=== PATIENT | female | born 1935 | race Caucasian/White ===

== ENCOUNTER → 2018-06-14 12:25 | Outpatient (CLI) | payer MEDICARE, SELFPAY ==
--- NOTE | 2018-06-14 | DI.US.S_ITS ---
PROCEDURE: US CAROTID DOPPLER BI INDICATIONS: UNSPECIFIED VISUAL DEFECTS TECHNIQUE: Color and pulse Doppler interrogation was performed of both carotid systems, with image documentation and velocity measurements. COMPARISON: None. FINDINGS: Stenosis calculations are based on SRU (Society of Radiologists in Ultrasound) criteria. Right side: Brachial blood pressure: 99/54 mm Hg. Common carotid artery peak systolic velocity: 101 cm/sec. Internal carotid artery peak systolic velocity: 87 cm/sec. Internal carotid artery end diastolic velocity: 19 cm/sec. External carotid artery peak systolic velocity: 81 cm/sec. ICA/CCA peak systolic ratio: 0.9. Li scale imaging description: Minimal plaque. Percent internal carotid artery stenosis: Less than 50%. Vertebral artery: Flow direction is antegrade. Left side: Brachial blood pressure: 98/55 mm Hg. Common carotid artery peak systolic velocity: 113 cm/sec. Internal carotid artery peak systolic velocity: 93 cm/sec. Internal carotid artery end diastolic velocity: 25 cm/sec. External carotid artery peak systolic velocity: 72 cm/sec. ICA/CCA peak systolic ratio: 0.8 Li scale imaging description: Normal appearance. Percent internal carotid artery stenosis: No carotid stenosis.. Vertebral artery: Flow direction is antegrade. IMPRESSION: Less than 50% right internal carotid artery stenosis and normal left carotid artery. Dictated by: Leland Loera RRA Interpreted: Argelia Wing MD on 06/14/2018 at 13:52 Approved by: Argelia Wing MD, PhD on 06/14/2018 at 15:09
--- NOTE | 2018-06-16 08:24 | PM.PFT.1 ---
Pulmonary Function Test Referral & Results Date Patient Seen: 06/14/18 Requesting provider: Mike Rose Results: The spirometry demonstrates an FVC of 2.3 L which is 95% of predicted. The FEV1 was measured at 1.54 L which is 83% of predicted. The FEV1/FVC ratio was 65 which is 88% of predicted. Following the administration of bronchodilator there was a 12% improvement in FEV1 and a 32% improvement in FEF 25-75%. Lung volumes show an SVC of 2.65 L which is 101% of predicted. The diffusing capacity was measured at 18.82 which is 77% of predicted. No hemoglobin value was provided, so no correction for potential anemia could be made, if appropriate. The maximum voluntary ventilation was reduced Interpretation: This study demonstrates mild obstructive lung disease with some limited evidence of benefit following bronchodilator particularly small airway flows based on improvement in FEF 25-75%. There is also slight reduction in diffusing capacity Compared to PFTs performed in November 2017, current study shows a bit more obstructive lung disease end diffusing capacity is reduced. Previously diffusing capacity was 87% predicted currently 77% of predicted (assuming patient is not anemic for either test)
== END ==
PROVIDERS: Family Provider Ophthalmology; PCP Family Medicine; Visit Provider Internal Medicine Cardiovascular Disease
DX: I51.9 Heart disease, unspecified (principal); R05 Cough; Z79.899 Other long term (current) drug therapy; H53.40 Unspecified visual field defects; E03.9 Hypothyroidism, unspecified; R53.83 Other fatigue; Z79.01 Long term (current) use of anticoagulants
CPT/HCPCS: 93880; 94010; 94060; 94726; 94729

== ENCOUNTER 2019-03-21 14:19 | Emergency (ER) | payer MEDICARE, OTHER, SELFPAY ==
[2019-03-21 14:22] VITALS: BP 149/78; PULSE 68; RESP 20; O2SAT 95; BMI 25.7
--- NOTE | 2019-03-21 14:25 | DI.RAD.S_ITS ---
PROCEDURE: XR FINGER LT MIN 2V INDICATIONS: injury, pain TECHNIQUE: AP hand, 2 views of the left second digit/finger(s) acquired. COMPARISON: None. FINDINGS: Bones: Bones are diffusely demineralized. No acute fracture or dislocation is identified. There are mild to moderate degenerative changes of the first through fifth interphalangeal joints, the first metacarpophalangeal joint, and the first carpometacarpal joint. Soft tissues: No radiopaque foreign bodies are identified. There is subtle soft tissue irregularity overlying the dorsal aspect of the mid-diaphysis of the left second distal phalanx. IMPRESSION: 1. No acute fracture or dislocation of the left second digit. Subtle soft tissue irregularity overlying the dorsal aspect of the left second distal phalanx may represent the sequela of soft tissue injury. Consider followup radiographs in 7-10 days if there is continued clinical concern. 2. Mild to moderate degenerative changes of the left hand as described above. Dictated by: Lamine Nevarez M.D. on 03/21/2019 at 14:39 Approved by: Lamine Nevarez M.D. on 03/21/2019 at 14:54
--- NOTE | 2019-03-21 14:41 | PC.NURSE ---
Dressing with 4x4s and coban to L index finger as continues to bleed. Pt is on Eliquis. Ice pack to finger.
[2019-03-21 16:35] VITALS: BP 170/84; PULSE 70; RESP 18; TEMP 36.9; O2SAT 99
--- NOTE | 2019-03-21 20:57 | ED.UPPEXIN ---
HPI - Extremity Injury (Upper) <Gabriela Prince, NUCLEAR EQUIPMENT DESIGN ENGINEER-BC - Last Filed: 03/21/19 21:01> General Chief Complaint: Extremity Injury, Upper Stated Complaint: smashed index finger in door Time Seen by Provider: 03/21/19 15:18 Source: patient and family Mode of arrival: ambulatory Limitations: no limitations History of Present Illness HPI narrative: The patient is an 83-year-old female former smoker who presents with a chief complaint of left index finger injury. She has a history of atrial fibrillation. She states she is not sure when her last tetanus was. She states she does have decreased range of motion due to pain, but she does not think it is broken. She denies any other injury she has not washed out. Related Data Home Medications Medication Instructions Recorded Confirmed diltiazem HCl 60 mg PO Q12H #0 01/14/17 03/21/19 amiodarone 50 mg PO DAILY #0 03/21/17 03/21/19 acyclovir 400 mg PO TID PRN 03/21/19 03/21/19 albuterol sulfate [ProAir HFA] 2 puff INHALATION QID PRN 03/21/19 03/21/19 apixaban 2.5 mg PO BID 03/21/19 03/21/19 buspirone 1 dose PO DIRECTED 03/21/19 03/21/19 calcium carbonate [Calcium 500] 500 mg PO DAILY 03/21/19 03/21/19 cholecalciferol (vitamin D3) 2,000 unit PO DAILY 03/21/19 03/21/19 [Vitamin D3] diclofenac sodium 1 applic TOPICAL QID PRN 03/21/19 03/21/19 gabapentin 100 mg PO DAILY 03/21/19 03/21/19 liothyronine [Cytomel] 5 mcg PO DAILY 03/21/19 03/21/19 loratadine 10 mg PO DAILY 03/21/19 03/21/19 mirtazapine 15 mg PO DAILY 03/21/19 03/21/19 multivitamin 1 tab PO DAILY 03/21/19 03/21/19 Previous Rx's Medication Instructions Recorded levothyroxine 0.088 mg PO QAM #90 tab 02/10/17 Allergies Allergy/AdvReac Type Severity Reaction Status Date / Time clotrimazole [CLOTRIMAZOLE] Allergy Severe EXTREME Unverified 12/21/17 11:52 BURNING,SWELLING,REDNESS oxycodone [OXYCODONE] Allergy Severe VOMITING Unverified 12/21/17 11:52 azithromycin [AZITHROMYCIN] Allergy Intermediate NAUSEA Unverified 12/21/17 11:52 VOMITING,DIARRHEA dextromethorphan Allergy Intermediate DIARRHEA Unverified 12/21/17 11:52 [DEXTROMETHORPHAN] Sulfa (Sulfonamide Allergy Mild UNKNOWN Unverified 12/21/17 11:52 Antibiotics) [SULFA (SULFONAMIDE ANTIBIOTICS)] escitalopram [From LEXAPRO] AdvReac Intermediate felt Unverified 12/21/17 11:52 terrible ENVIRONMENTAL Allergy Intermediate WHEEZING, Uncoded 12/21/17 11:52 SNEEZING, ITCHY EYES TAPE Allergy Mild SENSITIVE Uncoded 12/21/17 11:52 PAPER OK Review of Systems <DAYNA Schwab - Last Filed: 03/21/19 21:01> Review of Systems GENERAL: Denies chills, fatigue, malaise, fever, sweats. HEENT: Denies sinus pain, ear pain, sore throat, difficulty swallowing, dizziness. RESPIRATORY: Denies dyspnea, cough, wheezing, hemoptysis, sputum. CARDIOVASCULAR: Denies chest pain, palpitations, orthopnea, edema, GASTROINTESTINAL: Denies nausea, vomiting, abdominal pain, diarrhea, constipation, melena. : Denies dysuria, frequency, incontinence, hematuria, urinary retention. MUSCULOSKELETAL: d see HPI SKIN: See HPI NEUROLOGIC: Denies weakness, headache, numbness, change in speech, confusion, seizures, incoordination. PSYCHIATRIC: No concerning psychosocial issues. 12 point review of systems is negative except for those stated above PFSH <DAYNA Schwab - Last Filed: 03/21/19 21:01> Medical History Atrial fibrillation (Acute) Surgical History History of cataract removal with insertion of prosthetic lens History of knee replacement Status post appendectomy Status post colonoscopy Status post tonsillectomy and adenoidectomy Family History Father Heart disease Grandmother Heart disease Grandfather Heart disease Sister Age: 80 Obese Breast cancer Sister Age: 73 Obese Social History Smoking Status: Former smoker Family History Father Heart disease Grandmother Heart disease Grandfather Heart disease Sister Age: 80 Obese Breast cancer Sister Age: 73 Obese Social History Smoking Status: Former smoker Exam <DAYNA Schwab - Last Filed: 03/21/19 21:01> Narrative Exam Narrative: GENERAL: This is a well-nourished, well-developed patient, appears anxious HEAD: Atraumatic. Normocephalic. No temporal or scalp tenderness. EYES: Pupils equal round and reactive. Extraocular motions intact. No scleral icterus. No injection or drainage. ENT: Nose without bleeding, purulent drainage or septal hematoma. Throat without erythema, tonsillar hypertrophy or exudate. Uvula midline. Airway patent. NECK: Trachea midline. No JVD or lymphadenopathy. Supple, nontender, no meningeal signs. CARDIOVASCULAR: Regular rate and rhythm RESPIRATORY: No cough. No increased respiratory effort. No accessory muscle use. EXTREMITIES: Full range of motion noted left index finger. Able to flex and extend against resistance.. BACK: Nontender without deformity or crepitance. No flank tenderness. NEURO: AOx3. SKIN: Laceration noted above the base of the nail of the left index finger blood using around nail. Initial Vital Signs Initial Vital Signs: Vital Signs Pulse Rate 68 03/21/19 14:22 Respiratory Rate 20 03/21/19 14:22 Blood Pressure 149/78 H 03/21/19 14:22 Pulse Oximetry 95 03/21/19 14:22 <Gabriela Grove DO - Last Filed: 03/23/19 07:52> Initial Vital Signs Initial Vital Signs: Vital Signs Pulse Rate 68 03/21/19 14:22 Respiratory Rate 20 03/21/19 14:22 Blood Pressure 149/78 H 03/21/19 14:22 Pulse Oximetry 95 03/21/19 14:22 Course <DAYNA Schwab - Last Filed: 03/21/19 21:01> Orders Ordered: ED Orders 03/21/19 14:25 XR finger LT min 2V Stat Vital Signs - 8 hr 03/21/19 14:22 03/21/19 16:35 Temperature 98.4 F Pulse Rate 68 70 Respiratory Rate 20 18 Blood Pressure 149/78 H Blood Pressure [Left Arm] 170/84 H Pulse Oximetry 95 99 <Gabriela Grove DO - Last Filed: 03/23/19 07:52> Orders Ordered: ED Orders 03/21/19 14:25 XR finger LT min 2V Stat Vital Signs - 8 hr 03/21/19 14:22 03/21/19 16:35 Temperature 98.4 F Pulse Rate 68 70 Respiratory Rate 20 18 Blood Pressure 149/78 H Blood Pressure [Left Arm] 170/84 H Pulse Oximetry 95 99 MDM - Extremity Injury (Upper) <DAYNA Schwab - Last Filed: 03/21/19 21:01> Imaging Data Finger x-ray: Radiologist's impression: [address] [address] XRay Report Signed Patient: Velma Qureshi CMR#: [id number] : [id number]:[id number] Age/Sex: 83 / FDate of Service: 03/21/19 Loc: ED Accession Number: [id number] Procedure: XR finger LT min 2V Ordering Provider: Gabriela Grove D.O. PROCEDURE: XR FINGER LT MIN 2V INDICATIONS: injury, pain TECHNIQUE: AP hand, 2 views of the left second digit/finger(s) acquired. COMPARISON: None. FINDINGS: Bones: Bones are diffusely demineralized. No acute fracture or dislocation is identified. There are mild to moderate degenerative changes of the first through fifth interphalangeal joints, the first metacarpophalangeal joint, and the first carpometacarpal joint. Soft tissues: No radiopaque foreign bodies are identified. There is subtle soft tissue irregularity overlying the dorsal aspect of the mid-diaphysis of the left second distal phalanx. IMPRESSION: 1. No acute fracture or dislocation of the left second digit. Subtle soft tissue irregularity overlying the dorsal aspect of the left second distal phalanx may represent the sequela of soft tissue injury. Consider followup radiographs in 7-10 days if there is continued clinical concern. 2. Mild to moderate degenerative changes of the left hand as described above. Dictated by: Lamine Nevarez M.D. on 03/21/2019 at 14:39 Approved by: Lamine Nevarez M.D. on 03/21/2019 at 14:54 [facility] Narrative Medical decision making narrative: The patient is an 83-year-old female who presents with a chief complaint of finger pain after closing her finger in a car door. She has a negative x-ray. Her wound was cleansed and dressed by radha LUTZ. Her wound was soaked in Hibiclens. It was dressed with Surgicel and Xeroform. Her tetanus was updated. Discussed at length monitoring for signs and symptoms of infection. Encouraged follow-up with PCP. Discussed going back to the ER for any acute concerns. The patient remained neurovascularly intact throughout her stay in the ER. Discharge Plan Departure Patient Disposition: Home Clinical Impression: Finger injury Qualifiers: Encounter type: initial encounter Laterality: left Qualified Code(s): S69.92XA - Unspecified injury of left wrist, hand and finger(s), initial encounter Discharge Date/Time: 03/21/19 16:38 Interventions: ED Discharge Assessment Last Done: 03/21/19 16:38 Instructions: DI for Contusion, DI for Open Laceration Activity Restrictions/Additional Instructions: Your x-ray shows no sign of fracture. Please monitor your laceration for signs and symptoms of infection such as pus and extending redness. Please follow up with primary care provider. Please come back to the ER for any acute concerns such as chest pain, shortness of breath etc Prescriptions: No Action diltiazem HCl 60 MG capsule,extended release 12 hr 60 mg PO Q12H Qty: 0 RF: 0 levothyroxine 88 MCG tablet 0.088 mg PO QAM Qty: 90 RF: 2 amiodarone 200 MG tablet 50 mg PO DAILY Qty: 0 RF: 0 buspirone 5 mg tablet 1 dose PO DIRECTED RF: 0 albuterol sulfate [ProAir HFA] 90 mcg/actuation HFA aerosol inhaler 2 puff inhalation QID PRN (Reason: Shortness Of Breath) RF: 0 diclofenac sodium 1 % gel 1 applic topical QID PRN (Reason: pain) RF: 0 acyclovir 400 MG tablet 400 mg PO TID PRN (Reason: Outbreak) RF: 0 liothyronine [Cytomel] 5 MCG tablet 5 mcg PO DAILY RF: 0 mirtazapine 15 MG tablet 15 mg PO DAILY RF: 0 multivitamin Tablet 1 tab PO DAILY RF: 0 calcium carbonate [Calcium 500] 500 mg calcium (1,250 mg) Tablet 500 mg PO DAILY RF: 0 gabapentin 100 mg capsule 100 mg PO DAILY RF: 0 cholecalciferol (vitamin D3) [Vitamin D3] 2,000 unit Capsule 2,000 unit PO DAILY RF: 0 apixaban 2.5 mg Tablet 2.5 mg PO BID RF: 0 loratadine 10 mg Tablet 10 mg PO DAILY RF: 0 Referrals: Dashawn Corona MD [Primary Care Provider] - <Gabriela Grove DO - Last Filed: 03/23/19 07:52> Cosign ED Attending Cosignature Attestation: I was immediately available in the department for consultation. This documentation has been reviewed and I agree with assessment and plan. Supervised by Gabriela Grove DO
== END 2019-03-21 16:38 | disposition home or self-care (01) ==
PROVIDERS: Emergency Provider Nurse Practitioner Family; Family Provider Ophthalmology; PCP Family Medicine
DX: S67.191A Crushing injury of left index finger, initial encounter (principal); W23.1XXA Caught, crushed, jammed, or pinched between stationary objects, initial encounter
CPT/HCPCS: 29130; 73140; 99283

== ENCOUNTER → 2019-08-17 13:13 | Outpatient (CLI) | payer MEDICARE, OTHER, SELFPAY | PROVIDERS: Family Provider Ophthalmology; PCP Family Medicine; Visit Provider Internal Medicine Cardiovascular Disease | DX: R05 Cough (principal) ==

== ENCOUNTER 2021-01-05 00:11 | Emergency (ER) | payer MEDICARE, OTHER, SELFPAY ==
--- NOTE | 2021-01-05 00:21 | ED_ITS ---
HPI - Arrhythmia/Palpitations General Chief Complaint: Arrhythmia/Palpitations Stated Complaint: sent from [facility] - Heart problem Time Seen by Provider: 01/05/21 00:14 Source: patient Mode of arrival: Ambulatory Limitations: no limitations History of Present Illness HPI narrative: 85-year-old female former smoker with history of AFib on Eliquis presents after evaluation by paramedics on [place]. SHe developed some palpitations adn felt funny earlier today and took her blood pressure which noted a HR of 140s. She contacted medics and was found to be in AFib at the 110s-150s. She had no ischemic changes and was given Metoprolol 5mg IVP which dropped her HR to the 90s but still irregular. She has no CP or SOB. She's had no fever or chills. She has been on Eliquis for quite some time and denies any missed doses. She denies any recent medication or diet change. MD complaint: rapid heart beat, heart racing and palpitations Onset (ago): hour(s) Duration: constant Context: occurred during rest Arrhythmia history: atrial fibrillation Associated symptoms: denies other symptoms Related Data Home Medications Medication Instructions Recorded Confirmed diltiazem HCl 60 mg PO Q12H #0 01/14/17 03/21/19 amiodarone 50 mg PO DAILY #0 03/21/17 03/21/19 acyclovir 400 mg PO TID PRN 03/21/19 03/21/19 albuterol sulfate [ProAir HFA] 2 puff INHALATION QID PRN 03/21/19 03/21/19 apixaban 2.5 mg PO BID 03/21/19 03/21/19 buspirone 1 dose PO DIRECTED 03/21/19 03/21/19 calcium carbonate [Calcium 500] 500 mg PO DAILY 03/21/19 03/21/19 cholecalciferol (vitamin D3) 2,000 unit PO DAILY 03/21/19 03/21/19 [Vitamin D3] diclofenac sodium 1 applic TOPICAL QID PRN 03/21/19 03/21/19 gabapentin 100 mg PO DAILY 03/21/19 03/21/19 liothyronine [Cytomel] 5 mcg PO DAILY 03/21/19 03/21/19 loratadine 10 mg PO DAILY 03/21/19 03/21/19 mirtazapine 15 mg PO DAILY 03/21/19 03/21/19 multivitamin 1 tab PO DAILY 03/21/19 03/21/19 Previous Rx's Medication Instructions Recorded levothyroxine 0.088 mg PO QAM #90 tab 02/10/17 Allergies Allergy/AdvReac Type Severity Reaction Status Date / Time clotrimazole [CLOTRIMAZOLE] Allergy Severe EXTREME Unverified 12/21/17 11:52 BURNING,SWELLING,REDNESS oxycodone [OXYCODONE] Allergy Severe VOMITING Unverified 12/21/17 11:52 azithromycin [AZITHROMYCIN] Allergy Intermediate NAUSEA Unverified 12/21/17 11:52 VOMITING,DIARRHEA dextromethorphan Allergy Intermediate DIARRHEA Unverified 12/21/17 11:52 [DEXTROMETHORPHAN] Sulfa (Sulfonamide Allergy Mild UNKNOWN Unverified 12/21/17 11:52 Antibiotics) [SULFA (SULFONAMIDE ANTIBIOTICS)] escitalopram [From LEXAPRO] AdvReac Intermediate felt Unverified 12/21/17 11:52 terrible ENVIRONMENTAL Allergy Intermediate WHEEZING, Uncoded 12/21/17 11:52 SNEEZING, ITCHY EYES TAPE Allergy Mild SENSITIVE Uncoded 12/21/17 11:52 PAPER OK Review of Systems Constitutional Constitutional: Denies chills, Denies fatigue, Denies fever(s), Denies frequent falls, Denies lethargy and Denies weakness Eyes Eyes: Denies change in vision, Denies eye discharge, Denies irritation and Denies loss of vision ENT Ears, Nose, Mouth, and Throat: Denies change in voice, Denies dizziness, Denies neck pain, Denies sore throat and Denies throat swelling Cardiovascular Cardiovascular: Denies chest pain, Reports irregular heart rhythm, Denies lightheadedness, Reports palpitations, Denies dyspnea, Denies dyspnea on exertion and Denies orthopnea Respiratory Respiratory: Denies cough, Denies dyspnea, Denies dyspnea on exertion and Denies wheezing Gastrointestinal Gastrointestinal: Denies abdominal pain, Denies change in bowel habits, Denies diarrhea, Denies nausea and Denies vomiting Musculoskeletal Musculoskeletal: Denies neck pain and Denies numbness Integumentary/Breasts Skin/Breast: Denies pruritus, Denies erythema, Denies rash and Denies wounds Neurologic Neurologic: Denies behavioral changes, Denies confusion, Denies dizziness, D enies frequent falls, Denies loss of vision, Denies numbness and Denies weakness Psychiatric Psychiatric: Denies anxiety, Denies behavioral changes, Denies confusion, Denies depression, Denies homicidal ideation and Denies suicidal ideation Endocrine Endocrine: Denies fatigue, Denies flushing and Reports palpitations Hematologic/Lymphatic Hematologic/Lymphatic: Denies easy bruising Allergic/Immunologic Allergic/Immunologic: Denies urticaria, Denies throat swelling and Denies wheezing Patient History Medical History (Updated 01/05/21 @ 01:30 by Moe Marquez DO) Atrial fibrillation Surgical History History of cataract removal with insertion of prosthetic lens History of knee replacement Status post appendectomy Status post colonoscopy Status post tonsillectomy and adenoidectomy Family History Father Heart disease Grandmother Heart disease Grandfather Heart disease Sister Age: 82 Obese Breast cancer Sister Age: 75 Obese Social History Smoking Status: Former smoker Smoking Status: Former smoker Substance Use Type: marijuana Exam Narrative Exam Narrative: GENERAL: [85] year old patient appears stated age. Well- nourished, well-developed patient, in mild distress. HEAD: Atraumatic. Normocephalic. EYES: Pupils equal round and reactive. Extraocular motions intact. No scleral icterus. No injection or drainage. ENT: Nose without bleeding, purulent drainage. Throat without erythema, tonsillar hypertrophy or exudate. Airway patent. NECK: Trachea midline. Non tender CARDIOVASCULAR: Regular rate and rhythm without murmurs, gallops, or rubs. RESPIRATORY: Clear to auscultation. Breath sounds equal bilaterally. No wheezes, rales, or rhonchi. GASTROINTESTINAL: Abdomen soft, non-tender, nondistended. EXTREMITIES: No edema or joint tenderness. BACK: Nontender without deformity or crepitance. No flank tenderness. NEURO: AOx3. SKIN: No rash or erythema of visible areas Initial Vital Signs Initial Vital Signs: Vital Signs Pulse Rate 65 01/05/21 00:26 Respiratory Rate 18 01/05/21 00:26 Blood Pressure 171/79 H 01/05/21 00:26 Pulse Oximetry 96 04/26/21 00:26 Course Orders Ordered: ED Orders 01/05/21 00:22 XR chest 1V Stat EKG-12 Lead Stat 01/05/21 00:50 Complete Blood Count AUTO DIFF Stat Comprehensive Metabolic Panel Stat NT-proBNP (BNP-Adult 18+) Stat Troponin & CK Cardiac Panel Stat 01/05/21 01:05 Prothrombin Time INR Stat Reevaluation(s) Reevaluation #1: Patient continues to be asymptomatic, resting comfortably Consultations Consultation #1: call to trailer sections [facility] cardio at [place]. After discussion regarding history, physical etc. No ongoing symptoms and stable Afib for many years, no indication for admission, transfer, or medication alteration. Happy with DC and close follow up. Vital Signs Vital signs: Vital Signs - 8 hr 01/05/21 00:26 01/05/21 01:36 Pulse Rate 65 61 Respiratory Rate 18 20 Blood Pressure 171/79 H 144/67 H Pulse Oximetry 96 98 MDM - Arrhythmia/Palpitations Lab Data Result diagrams: 01/05/21 00:50 01/05/21 00:50 Labs: Lab Results 01/05/21 01/05/21 01/05/21 Range/Units 00:50 00:50 00:50 WBC 8.1 (4.5-11.0) X10^3/uL RBC 4.33 (4.0-5.2) X10^6/uL Hgb 13.7 (12.0-16.0) g/dL Hct 40.3 (36-46) % MCV 93.1 (80-100) fL MCH 31.7 (26-34) PG MCHC 34.0 (30-36) % RDW 15.1 H (11.6-14.8) % Plt Count 293 (150-400) X10^3/uL Neut % (Auto) 72.2 (50-75) % Lymph % (Auto) 19.5 L (25-40) % [place] % (Auto) 6.9 (3-14) % Eos % (Auto) 0.9 L (2-4) % Baso % (Auto) 0.5 (0-2) % Neut # (Auto) 5900 (9134-9526) /uL Lymph # (Auto) 1600 (0659-6296) /uL [place] # (Auto) 600 (0-900) /uL Eos # (Auto) 100 (0-450) /uL Baso # (Auto) 0 (0-100) /uL PT (10.1-12.7) SECONDS INR (0.9-1.3) Sodium 131 L (137-145) mmol/L Potassium 4.1 (3.4-5.1) mmol/L Chloride 99 (98-107) mmol/L Carbon Dioxide 24 (22-32) mmol/L BUN 19 H (7-17) mg/dL Creatinine 0.73 (0.52-1.04) mg/dL Estimated GFR > 60.0 (>60) mL/min BUN/Creatinine Ratio 26.0 H (6-22) Glucose 95 (80-110) mg/dL Calcium 8.8 (8.4-10.2) mg/dL Total Bilirubin 0.2 (0.2-1.3) mg/dL AST 31 (14-36) IU/L ALT 18 (<35) IU/L Alkaline Phosphatase 116 (38-126) U/L Total Creatine Kinase 75 (30-135) U/L CK-MB (CK-2) TNP CK-MB (CK-2) Rel Index TNP Troponin I < 0.012 (0.01-0.034) ng/mL NT-Pro-B Natriuret Pep 241 (<450) pg/mL Total Protein 6.7 (6.3-8.2) g/dL Albumin 3.9 (3.5-5.0) g/dL Globulin 2.8 (1.7-4.1) g/dL Albumin/Globulin Ratio 1.4 (1.0-2.8) // Range/Units 01:05 WBC (4.5-11.0) X10^3/uL RBC (4.0-5.2) X10^6/uL Hgb (12.0-16.0) g/dL Hct (36-46) % MCV (80-100) fL MCH (26-34) PG MCHC (30-36) % RDW (11.6-14.8) % Plt Count (150-400) X10^3/uL Neut % (Auto) (50-75) % Lymph % (Auto) (25-40) % [place] % (Auto) (3-14) % Eos % (Auto) (2-4) % Baso % (Auto) (0-2) % Neut # (Auto) (8490-0320) /uL Lymph # (Auto) (2746-2508) /uL [place] # (Auto) (0-900) /uL Eos # (Auto) (0-450) /uL Baso # (Auto) (0-100) /uL PT 15.8 H (10.1-12.7) SECONDS INR 1.4 H (0.9-1.3) Sodium (137-145) mmol/L Potassium (3.4-5.1) mmol/L Chloride (98-107) mmol/L Carbon Dioxide (22-32) mmol/L BUN (7-17) mg/dL Creatinine (0.52-1.04) mg/dL Estimated GFR (>60) mL/min BUN/Creatinine Ratio (6-22) Glucose (80-110) mg/dL Calcium (8.4-10.2) mg/dL Total Bilirubin (0.2-1.3) mg/dL AST (14-36) IU/L ALT (<35) IU/L Alkaline Phosphatase (38-126) U/L Total Creatine Kinase (30-135) U/L CK-MB (CK-2) CK-MB (CK-2) Rel Index Troponin I (0.01-0.034) ng/mL NT-Pro-B Natriuret Pep (<450) pg/mL Total Protein (6.3-8.2) g/dL Albumin (3.5-5.0) g/dL Globulin (1.7-4.1) g/dL Albumin/Globulin Ratio (1.0-2.8) ECG Data Attestation: I personally reviewed and interpreted this ECG as follows: Interpretation: EKG is normal sinus rhythm rate [63 ] and free of any signs of ischemia or ectopy. No ST segmental elevation or depression. No T wave inversions. First degree block Discharge Plan Departure Patient Disposition: Home Clinical Impression: Atrial fibrillation Qualifiers: Atrial fibrillation type: paroxysmal Qualified Code(s): I48.0 - Paroxysmal atrial fibrillation Instructions: DI for Atrial Fibrillation Activity Restrictions/Additional Instructions: *You have been diagnosed with [atrial fibrillation, resolved] *What to do: * continue to take medications as directed. I discussed your case with the on-call pad machine operator for Dr. Rose and there is no need to alter your medications. *Follow up with your primary care provider in 2-3 days, call for an appointment. Let them know you were seen in the Emergency Department and that we ask that you be seen in follow up *Return to ER if you should have any new, worsening or concerning symptoms Prescriptions: No Action diltiazem HCl 60 MG capsule,extended release 12 hr 60 mg PO Q12H Qty: 0 RF: 0 levothyroxine 88 MCG tablet 0.088 mg PO QAM Qty: 90 RF: 2 amiodarone 200 MG tablet 50 mg PO DAILY Qty: 0 RF: 0 buspirone 5 mg tablet 1 dose PO DIRECTED RF: 0 albuterol sulfate [ProAir HFA] 90 mcg/actuation HFA aerosol inhaler 2 puff inhalation QID PRN (Reason: Shortness Of Breath) RF: 0 diclofenac sodium 1 % gel 1 applic topical QID PRN (Reason: pain) RF: 0 acyclovir 400 MG tablet 400 mg PO TID PRN (Reason: Outbreak) RF: 0 liothyronine [Cytomel] 5 MCG tablet 5 mcg PO DAILY RF: 0 mirtazapine 15 MG tablet 15 mg PO DAILY RF: 0 multivitamin Tablet 1 tab PO DAILY RF: 0 calcium carbonate [Calcium 500] 500 mg calcium (1,250 mg) Tablet 500 mg PO DAILY RF: 0 gabapentin 100 mg capsule 100 mg PO DAILY RF: 0 cholecalciferol (vitamin D3) [Vitamin D3] 2,000 unit Capsule 2,000 unit PO DAILY RF: 0 apixaban 2.5 mg Tablet 2.5 mg PO BID RF: 0 loratadine 10 mg Tablet 10 mg PO DAILY RF: 0 Referrals: Mike Rose MD [Non-Staff] - Dashawn Corona MD [Primary Care Provider] -
--- NOTE | 2021-01-05 00:22 | DI.RAD.S_ITS ---
PROCEDURE: XR CHEST 1V INDICATIONS: SOB TECHNIQUE: One view of the chest was acquired. COMPARISON: [facility], , CHEST 2 VIEW, 11/16/2016, 12:42. FINDINGS: Surgical changes and devices: None. Lungs and pleura: Lungs are clear. No pleural effusions or pneumothorax. Mediastinum: Mediastinal contours appear normal. Heart size is normal. Bones and chest wall: No suspicious bony lesions. Overlying soft tissues appear unremarkable. IMPRESSION: No acute cardiopulmonary disease process. Dictated by: Argelia Wing MD, PhD on 01/05/2021 at 7:21 Approved by: Argelia Wing MD, PhD on 01/05/2021 at 7:21
[2021-01-05 00:26] VITALS: BP 171/79; PULSE 65; RESP 18; O2SAT 96; BMI 25.7
--- NOTE | 2021-01-05 00:52 | PC.NURSE ---
Patient reported that she had a rapid heart rate and had contacted the [facility]; they gave her iv metoprolol and upon arrival to [facility] she is in NSR with HR in the 60s, see charting for vitals.
[2021-01-05 00:59] LABS: Add Manual Diff / Slide Review NO; Basophils Absolute Auto 0 /uL (0-100); Basophils Percent Auto 0.5 % (0-2); Eosinophils Absolute Auto 100 /uL (0-450); Eosinophils Percent Auto 0.9 % (2-4); Hematocrit 40.3 % (36-46); Hemoglobin 13.7 g/dL (12.0-16.0); Lymphocytes Absolute Auto 1600 /uL (1100-4500); Lymphocytes Percent Auto 19.5 % (25-40); Mean Corpuscular Hemoglobin 31.7 PG (26-34); Mean Corpuscular Volume 93.1 fL (80-100); Monocytes Absolute Auto 600 /uL (0-900); Monocytes Percent Auto 6.9 % (3-14); Neutrophils Absolute Auto 5900 /uL (1500-7000); Neutrophils Percent Auto 72.2 % (50-75); Platelet Count 293 X10^3/uL (150-400); Red Blood Cell Count 4.33 X10^6/uL (4.0-5.2); Red Cell Distribution Width 15.1 % (11.6-14.8); White Blood Cell Count 8.1 X10^3/uL (4.5-11.0)
[2021-01-05 01:09] LABS: Alanine Aminotransferase 18 IU/L (<35); Albumin 3.9 g/dL (3.5-5.0); Albumin Globulin Ratio 1.4 (1.0-2.8); Alkaline Phosphatase 116 U/L (38-126); Aspartate Aminotransferase 31 IU/L (14-36); Bilirubin Total 0.2 mg/dL (0.2-1.3); Blood Urea Nitrogen 19 mg/dL (7-17); Calcium 8.8 mg/dL (8.4-10.2); Carbon Dioxide 24 mmol/L (22-32); Chloride 99 mmol/L (98-107); Creatine Kinase 75 U/L (30-135); Estimated Glomerular Filt Rate > 60.0 mL/min (>60); Globulin 2.8 g/dL (1.7-4.1); Glucose 95 mg/dL (80-110); HEMOLYSIS 30 (0-50); Potassium 4.1 mmol/L (3.4-5.1); Sodium 131 mmol/L (137-145); Total Protein 6.7 g/dL (6.3-8.2)
[2021-01-05 01:18] LABS: NT-proBNP (BNP-Adult 18+) 241 pg/mL (<450)
[2021-01-05 01:21] LABS: INR 1.4 (0.9-1.3); Prothrombin Time 15.8 SECONDS (10.1-12.7)
[2021-01-05 01:21] LABS: Troponin I < 0.012 ng/mL (0.01-0.034)
[2021-01-05 01:36] VITALS: BP 144/67; PULSE 61; RESP 20; O2SAT 98
== END 2021-01-05 01:43 | disposition home or self-care (01) ==
PROVIDERS: Emergency Provider Emergency Medicine; Family Provider Ophthalmology; PCP Family Medicine
DX: I48.0 Paroxysmal atrial fibrillation (principal); Z79.01 Long term (current) use of anticoagulants
CPT/HCPCS: 36415; 71045; 80053; 82550; 83880; 84484; 85025; 85610; 93005; 99283; 99284

== ENCOUNTER → 2021-08-27 10:42 | Outpatient (CLI) | payer MEDICARE, OTHER, SELFPAY ==
[2021-08-27 11:50] LABS: COVID19 -Nasal RAPID Negative (Negative)
== END ==
PROVIDERS: Family Provider Ophthalmology; PCP Family Medicine; Referring Provider Internal Medicine; Visit Provider Internal Medicine
DX: Z20.822 Contact with and (suspected) exposure to COVID-19 (principal)
CPT/HCPCS: 87635; C9803

== ENCOUNTER → 2021-08-27 10:48 | Outpatient (CLI) | payer MEDICARE, OTHER, SELFPAY ==
--- NOTE | 2021-09-02 10:12 | PM.PFT.1 ---
Pulmonary Function Test Referral & Results Date Patient Seen: 08/27/21 Requesting provider: Duy Townsend Results: The spirometry demonstrates an FVC of 2.80 L which is 119% of predicted. The FEV1 was measured at 1.71 L which is 98% of predicted. The FEV1/FVC ratio was 61 which is 83% of predicted. No bronchodilator was administered and no lung volumes were performed The diffusing capacity was measured at 18.98 which is 78% of predicted. No hemoglobin value was provided, so no correction for potential anemia could be made, if appropriate. The maximum voluntary ventilation was not performed Interpretation: This study demonstrates probably normal spirometry but a very mild reduction in diffusing capacity
== END ==
PROVIDERS: Family Provider Ophthalmology; PCP Family Medicine; Referring Provider Nurse Practitioner Family; Visit Provider Nurse Practitioner Family
DX: Z51.81 Encounter for therapeutic drug level monitoring (principal); Z79.899 Other long term (current) drug therapy; Z20.822 Contact with and (suspected) exposure to COVID-19
CPT/HCPCS: 87635; 94010; 94729; C9803

== ENCOUNTER → 2021-11-24 08:51 | Outpatient (CLI) | payer MEDICARE, OTHER, SELFPAY ==
--- NOTE | 2021-11-24 08:56 | DI.MRI.S_ITS ---
PROCEDURE: MR LUMBAR SPINE WO CON INDICATIONS: Right-sided back pain with scoliosis TECHNIQUE: Noncontrast sagittal T1 spin echo and T2 fast echo, sagittal STIR, axial T1 and T2 fast spin echo through the lumbar spine. In cases with scoliosis, additional coronal T2 fast spin echo may be performed. COMPARISON: [facility], MR, L-SPINE WITHOUT CONTRAST, 04/02/2008, 11:32. FINDINGS: Image quality: Excellent. Alignment and Curvature: There is 23.7? right convex scoliosis centered at L2. This is increased from 18.6? on the comparison MRI dated March 13, 2008. There is grade 1 left lateral listhesis of L1 on L2. This is increased in severity when compared with the prior study. No retrolisthesis or anterolisthesis of the lumbar spine. Bone Marrow: Marrow is moderately heterogeneous secondary to extensive reactive endplate changes. 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 Spinal Cord: Conus medullaris terminates at the L1 level. Visualized cord demonstrates normal signal and size. Paraspinous Soft Tissues: No paravertebral masses. T12-L1: Severe disc desiccation and height loss. Broad-based disc bulge. No canal stenosis. Mild right and severe left foraminal stenosis. The extent of degenerative disc disease has markedly increased when compared with the study from 2007. L1-L2: Severe disc desiccation and height loss. Vacuum disc phenomenon. Severe facet ligamentum flavum hypertrophy. No canal stenosis. Severe left and mild right neural foraminal stenosis. These findings have markedly increased from 2008. There is a new posterior focal high-intensity zone. L2-L3: Severe disc desiccation and height loss. Broad-based disc bulge. Severe facet and ligamentum flavum hypertrophy. Vacuum disc phenomenon. Severe left foraminal stenosis. Mild right neural foraminal stenosis. Findings are markedly increased in severity from prior study. There is a new posterior focal high-intensity zone. L3-L4: Severe disc desiccation and height loss. Broad-based disc bulge. Severe facet ligamentum flavum hypertrophy. Severe left and moderate right foraminal stenosis. Findings are increased in severity. There is a new posterior focal high-intensity zone. L4-L5: Severe disc desiccation and height loss. Modic type II reactive endplate changes. Broad-based disc bulge. Severe facet and ligamentum flavum hypertrophy. No canal stenosis. Severe bilateral neural foraminal stenosis. Findings are markedly increased in severity when compared with the prior study. L5-S1: Severe disc desiccation and height loss. No canal stenosis. Severe facet ligamentum flavum hypertrophy. Moderate right foraminal stenosis. No left neural foraminal narrowing. Findings of increased in severity. There is a new posterior focal high-intensity zone. IMPRESSION: 1. Overall, the degenerative changes throughout the lumbar spine of markedly increased in severity when compared with the study from 2008. Specifically, there is now severe disc desiccation and height loss throughout the lumbar spine with multilevel vacuum disc phenomenon and broad-based disc bulges. 2. No canal stenosis of the lumbar spine. 3. Moderate to severe neural foraminal stenosis throughout the lumbar spine increased in severity from the prior study. 4. Multilevel posterior annular fibrosis tears. These are new when compared with the prior study. 5. Increased severity of the right convex scoliosis from 18.6? on the prior study to 23.7? on the current study. Increased L1 on L2 rightward listhesis likely associated with increased severity of scoliosis. Dictated by: Soha Andrade M.D. on 11/24/2021 at 10:25 Approved by: Soha Andrade M.D. on 11/24/2021 at 10:43
== END ==
PROVIDERS: Family Provider Ophthalmology; PCP Nurse Practitioner Family; Referring Provider Physical Medicine & Rehabilitation; Visit Provider Physical Medicine & Rehabilitation
DX: M47.816 Spondylosis without myelopathy or radiculopathy, lumbar region (principal); M47.817 Spondylosis without myelopathy or radiculopathy, lumbosacral region; M48.061 Spinal stenosis, lumbar region without neurogenic claudication; M48.07 Spinal stenosis, lumbosacral region; M41.86 Other forms of scoliosis, lumbar region
CPT/HCPCS: 72148

== ENCOUNTER → 2021-11-24 09:53 | Outpatient (CLI) | payer MEDICARE, OTHER, SELFPAY ==
[2021-11-24 10:37] LABS: COVID19 -Nasal RAPID Negative (Negative)
== END ==
PROVIDERS: Family Provider Ophthalmology; PCP Nurse Practitioner Family; Visit Provider Physical Medicine & Rehabilitation
DX: Z20.822 Contact with and (suspected) exposure to COVID-19 (principal)
CPT/HCPCS: 87635

== ENCOUNTER 2021-11-24 13:31 | Outpatient (CLI) | payer MEDICARE, OTHER, SELFPAY ==
[2021-11-24] VITALS (8 sets, daily range): BP systolic 104–166; BP diastolic 67–79; PULSE 70–75; RESP 16–20; TEMP 36.7; O2SAT 95–100
--- NOTE | 2021-11-24 13:33 | DI.RAD.S_ITS ---
PROCEDURE: PAIN L/SI FACET INJ/BLK 1STL INDICATIONS: Spondylosis COMPARISON: [facility], MR, MR LUMBAR SPINE WO CON, 11/24/2021, 9:12. FINDINGS: Fluoroscopic spot filming was performed to verify placement of spinal needles on the right at the L2-L3, L3-L4, and L4-L5 levels, as labeled on the films. Appropriate location of the needle tips was confirmed by injection of iodinated contrast. IMPRESSION: Intraprocedural examination within normal limits. Dictated by: Addy Last M.D. on 11/24/2021 at 15:10 Approved by: Addy Last M.D. on 11/24/2021 at 15:11
[2021-11-24] MEDS: MIDAZOLAM 2 MG/2 ML VIAL IV (14:25)
[2021-11-24] MEDS: IOPAMIDOL 15 ML VIAL 3 ML INJ (14:26)
[2021-11-24] MEDS: BUPIVACAINE 0.5% (PF) VIAL 2 ML INJ (14:27)
[2021-11-24] MEDS: BETAMETHASONE 30 MG/5 ML MDV 12 MG INJ (14:27)
--- NOTE | 2021-11-24 14:34 | P.PCN_ITS ---
Date/Time/Diagnoses Date of procedure: 11/24/21 Time of procedure: 14:34 Pre-procedure diagnosis: 1. FACET ARTHROPATHY, 2. AXIAL LBP, 3. MULTILEVEL DDD Post-procedure diagnosis: same Procedure Notes Procedure: 1. FLUOROSCOPICALLY GUIDED CONTRAST CONTROLLED FACET JOINT INJECTIONS RIGHT L2/3, L3/4, L4/5 Indications: Velma is referred by NELDA Real for treatment of Axial LBP Physician: Dashawn Hernandez Total Fluoroscopy time (seconds): 9 Total sedation minutes: 6 Complications: none Procedure in detail & Post-procedure care: FINDINGS Multilevel Facet Arthropathy with Clinically significant axial LBP DESCRIPTION OF PROCEDURE Fluoroscopically guided, contrast-controlled right L2/3, L3/4, L4/5 facet joint injections. Following review of allergy and review of potential side effects and complications, including, but not necessarily limited to, infection, allergic reaction, local tissue breakdown, stroke, temporary or permanent nerve injury, paralysis, and possible , the patient indicated that the patient understood and agreed to proceed. An informed consent document was signed by the patient, witnessed by a nurse, and placed in the patient's chart. Additionally, other treatment options including medications, modalities, and physical therapy were reviewed with the patient. After review of previous anaesthesic history and IV conscious sedation the randolph ent was deemed safe to proceed with today?s procedure with IV conscious sedation as ASA class II designation. Safety time-out was performed to confirm patient ID, procedure to be performed and site of procedure. IV sedation was accomplished with a combination of 2mg of Versed administered by the RN after DO order, titrated to patient comfort during the course of the procedure while the patient remained responsive to all verbal commands. In the prone position, following sterile prep and drape of the lumbar region, the posterior aspect of the right L2/3, L3/4, L4/5 facet joints were identified fluoroscopically. The skin was anesthetized via a 25-gauge 1.5-inch needle with 1% lidocaine solution into the corresponding facet joints. At this point, a 22- gauge 3.5-inch spinal needle was atraumatically introduced and advanced under fluoroscopic guidance into the corresponding facet joints. Following negative aspiration, injections of approximately 0.2-cc of Isovue 200 confirmed interarticular placement without vascular uptake. Radiological data, including multiple fluoroscopic views of the lumbosacral spine, reveal a spinal needle at the right L2/3, L3/4, L4/5 facet joints. Subsequent views show flow of contrast material both superiorly and inferiorly within the joint space without vascular or intrathecal uptake. At this point, a total of 0.5cc including a mixture of 0.25 cc Marcaine and 0.25cc betamethasone was injected without complication into each of the corresponding facet joints. The patient tolerated the procedure well without signs or symptoms of complications prior to transfer to the recovery area for further monitoring. The patient was then transferred to the recovery area where they were observed for an appropriate period of time after the injection. The patient reported a VAS score of 7 prior to the procedure and a post-procedure VAS of 0. POST OP INSTRUCTIONS The patient was provided a Pain Log to continue to record their response to the target-specific procedure prior to follow-up visit with their referring physician. Additionally, specific post-injection care instructions and a contact number to our office were provided if concerns arise regarding possible complications associated with the procedure are suspected.
== END 2021-11-24 15:16 | disposition home or self-care (01) ==
LOC: RAD 13:32
PROVIDERS: Family Provider Ophthalmology; PCP Nurse Practitioner Family; Referring Provider Physical Medicine & Rehabilitation; Visit Provider Physical Medicine & Rehabilitation
DX: M47.816 Spondylosis without myelopathy or radiculopathy, lumbar region (principal); M47.817 Spondylosis without myelopathy or radiculopathy, lumbosacral region; M51.36 Other intervertebral disc degeneration, lumbar region; M48.061 Spinal stenosis, lumbar region without neurogenic claudication; M48.07 Spinal stenosis, lumbosacral region; M41.86 Other forms of scoliosis, lumbar region; Z20.822 Contact with and (suspected) exposure to COVID-19
CPT/HCPCS: 64493; 64494; 64495; 72148; 87635; C9803; J0702; J2250; J3010

== ENCOUNTER 2022-03-25 07:39 | Outpatient (CLI) | payer MEDICARE, OTHER, SELFPAY ==
[2022-03-25] VITALS (9 sets, daily range): BP systolic 127–151; BP diastolic 68–99; PULSE 64–72; RESP 12–20; TEMP 36.3; O2SAT 96–99
--- NOTE | 2022-03-25 07:41 | DI.RAD.S_ITS ---
PROCEDURE: PAIN L/SI FACET INJ/BLK 1STL INDICATIONS: SPONDYLOSIS COMPARISON: [facility], , PAIN L/SI FACET INJ/BLK 1STL, 11/24/2021, 14:26. FINDINGS: Fluoroscopic spot filming was performed to verify placement of spinal needles on the right at the L2, L3, L4, and L5 levels, as labeled on the films. Appropriate location of the needle tips was confirmed by injection of iodinated contrast. IMPRESSION: Intraprocedural examination demonstrating appropriate positions of the needles. Dictated by: Addy Last M.D. on 03/25/2022 at 8:58 Approved by: Addy Last M.D. on 03/25/2022 at 8:58
[2022-03-25 08:35] LABS: COVID19 -Nasal RAPID Negative (Negative)
[2022-03-25] MEDS: MIDAZOLAM 2 MG/2 ML VIAL 3 MG IV (09:25)
[2022-03-25] MEDS: IOPAMIDOL 15 ML VIAL 3 ML INJ (09:33)
[2022-03-25] MEDS: BUPIVACAINE 0.5% (PF) VIAL 2 ML INJ (09:33)
[2022-03-25] MEDS: LIDOCAINE 1% (PF) 5 ML INJ (09:34)
--- NOTE | 2022-03-25 09:39 | PM.PROC.IR.1 ---
Date/Time/Diagnoses Date of procedure: 03/25/22 Time of procedure: 09:40 Pre-procedure diagnosis: 1. FACET ARTHROPATHY Post-procedure diagnosis: same Procedure Notes Procedure: 1. Right L2, L3, L4, L5 MB BLOCKS Indications: Velma is referred by Dr. Montoya for treatment of Right Axial LBP. Physician: Dashawn Hernandez Total Fluoroscopy time (seconds): 13 Total sedation minutes: 15 Complications: none Procedure in detail & Post-procedure care: DESCRIPTION OF PROCEDURE Fluoroscopically guided, contrast-controlled right L2, L3, L4 and L5 medial branch blocks with 0.5cc of 0.5% Marcaine. Following review of allergy and review of potential side effects and complications, including, but not necessarily limited to, infection, allergic reaction, local tissue breakdown, nerve injury, paralysis, stroke and possible , the patient indicated that the patient understood and agreed to proceed. An informed consent document was signed by the patient, witnessed by a nurse, and placed in the patient's chart. After review of previous anaesthesic history and IV conscious sedation the patient was deemed safe to proceed with today?s procedure with IV conscious sedation as ASA class II designation. Safety time-out was performed to confirm patient ID, procedure to be performed and site of procedure. IV sedation was accomplished with a combination of 3mg of Versed was administered by the RN after DO order, titrated to patient comfort during the course of the procedure while the patient remained responsive to all verbal commands In the prone position, following sterile prep and drape of the lumbar region, the right L2, L3, L4, L5 anatomical location of the medial branch of the dorsal ramus was identified fluoroscopically. Subsequently an anesthetic skin wheal using 1% lidocaine solution was initiated at each of the anatomical spots. Subsequently then a 22-gauge 3.5-inch spinal needle was atraumatically introduced and advanced under fluoroscopic guidance at each of the corresponding sites at the right L2, L3, L4, L5 MB. After negative aspiration, 0.2 cc of Isovue 200 was injected, confirming placement without vascular or intrathecal uptake. Subsequently then 0.5cc of 0.5% Marcaine solution was injected at each of the corresponding sites at the right L2, L3, L4, L5 medial branch locations. The patient tolerated the procedure well without signs or symptoms of complications. The procedure tolerated the procedure well without signs or symptoms of complications prior to transfer to the recovery area continued monitoring without incident. Post-procedure, the patient was monitored initiating provocative activities to measure the amount of relief from block of the facetogenic pain. The patient reported a VAS of 7 prior to the procedure and a post-procedure VAS of 1. It has been a pleasure to assist in the diagnostic and therapeutic care of your patient. POST OP INSTRUCTIONS The patient was provided with a Pain Log to complete over the next several hours and subsequent days prior to the patient's follow up with the ordering physician. If the patient has gray mixing operator relief to the solution applied, then they may be a candidate for medial branch rhizotomy. The patient is aware, was provided, once again, with a Pain Log and will follow up with the referring physician for review and clinical correlation.
--- NOTE | 2022-03-25 10:30 | PC.NURSE ---
Patient's ride is [employer] but they will not arrive until 11:30 per patient. She reports discussing discharge with Dr. Hernandez's office and given the ok. Dr. Hernandez made aware that patient won't be picked up until 11:30 and would like to sit in the cafeteria until that time. Patient ambulated with SBA, steady baseline gait. She is A/O and recovered from sedation per protocol. Given the OK by Dr. Hernandez to discharge to the cafeteria.
== END 2022-03-25 10:32 | disposition home or self-care (01) ==
LOC: RAD 07:41
PROVIDERS: Family Provider Ophthalmology; PCP Family Medicine; Referring Provider Physical Medicine & Rehabilitation; Visit Provider Physical Medicine & Rehabilitation
DX: M47.816 Spondylosis without myelopathy or radiculopathy, lumbar region (principal); Z20.822 Contact with and (suspected) exposure to COVID-19
CPT/HCPCS: 64493; 64494; 64495; 87635; 99152; J2250

== ENCOUNTER 2022-06-01 07:01 | Outpatient (CLI) | payer MEDICARE, OTHER, SELFPAY ==
[2022-06-01] VITALS (10 sets, daily range): BP systolic 141–170; BP diastolic 69–87; PULSE 73–79; RESP 10–20; TEMP 36.2; O2SAT 95–100
--- NOTE | 2022-06-01 07:03 | DI.RAD.S_ITS ---
PROCEDURE: PAIN L/S MED/LAT N RFA INDICATIONS: L3, L4, L5, S1 MEDIAL BRANCH RHIZOTOMY COMPARISON: [facility], XA, PAIN L/SI FACET INJ/BLK 1STL, 03/25/2022, 9:21. FINDINGS: Fluoroscopic spot filming was performed to verify placement of spinal needles on on the right at the L3, L4, L5, and S1 levels, as labeled on the films. IMPRESSION: Images during rhizotomy within normal limits. Dictated by: Addy Last M.D. on 06/01/2022 at 8:56 Approved by: Addy Last M.D. on 06/01/2022 at 8:57
[2022-06-01 07:35] LABS: COVID19 -Nasal RAPID Negative (Negative)
[2022-06-01] MEDS: MIDAZOLAM 2 MG/2 ML VIAL IV (08:27)
[2022-06-01] MEDS: BUPIVACAINE 0.5% (PF) VIAL 5 ML INJ (08:28)
[2022-06-01] MEDS: LIDOCAINE 1% (PF) 5 ML INJ (08:29)
--- NOTE | 2022-06-01 08:54 | P.PCN_ITS ---
Date/Time/Diagnoses Date of procedure: 06/01/22 Time of procedure: 08:54 Pre-procedure diagnosis: 1. RECALCITRANT FACET ARTHROPATHY Post-procedure diagnosis: same Procedure Notes Procedure: 1. RIGHT L3, L4 AND L5 MEDIAL BRANCH RADIOFREQUENCY NEUROTOMY AND RIGHT S1 DORSAL RAMUS BRANCH RADIOFREQUENCY NEUROTOMY Indications: Velma is referred by Dr. Montoya for treatment of facet arthropathy. Physician: Dashawn Hernandez Total Fluoroscopy time (seconds): 10 Total sedation minutes: 22 Complications: none Procedure in detail & Post-procedure care: DESCRIPTION OF PROCEDURE Right L3, L4 and L5 medial branch radiofrequency neurotomy and right S1 dorsal ramus branch radiofrequency neurotomy under fluoroscopy with conscious sedation. The patient is well known to this clinic having undergone previous facet inje ctions with good but temporary relief. The patient has experienced appropriate, concordant relief with previous facet and median branch blocks but the patient's pain has been recalcitrant to further conservative measures. Therefore, based upon the patient's relief and persistent symptoms, the patient is considered an appropriate candidate for facet rhizotomy. All of the patient's questions regarding the risks versus benefits of the procedure, including, but not limited to, bleeding, infection, temporary as well as lasting nerve injury, paralysis, stroke, and , as well treatment alternatives were answered to satisfaction. After review of previous anaesthesic history and IV conscious sedation the patient was deemed safe to proceed with today?s procedure with IV conscious sedation as ASA class II designation. Safety time-out was performed to confirm patient ID, procedure to be performed and site of procedure. IV sedation was accomplished with a combination of 2mg of Versed was administered by the RN after DO order, titrated to patient comfort during the course of the procedure while the patient remained responsive to all verbal commands. After obtaining informed consent, denial of pertinent drug allergies, as well as being made aware of the potential risks of bleeding, infection, spinal cord trauma, paralysis, temporary and permanent nerve damage, seizure, stroke, and possible , the patient was brought to the fluoroscopy suite and positioned prone on the fluoroscopy table. The lumbar region was prepped with Betadine and covered with a fenestrated drape in the usual sterile fashion. Appropriate monitors applied including pulse oximeter, pulse, and blood pressure for regular monitoring throughout the procedure. After local infiltration using 1% lidocaine, under fluoroscopic guidance, a 10- cm RF insulated needle with a 10-mm active tip was positioned parallel to the junction of the right sacral ala and the superior articulating process where the S1 dorsal ramus resides. Needle placement was confirmed with sensory stimulation at 50 Hz, with motor stimulation of .5v on the right which produced local stimulation without radicular component. The stimulation was then increased to 2v with, once again, only local multifidus stimulation without radicular component. This was then followed by two discreet lesions performed at 80 degrees Celsius for 90 seconds each. The needle was then removed and the identical procedure was performed along the length of the right L5 medial branch with motor stimulation at .7v on the right. The identical procedure was once again performed along the length of the right L4 medial branch with motor stimulation of .5v on the right. The identical procedure was once again performed along the length of the right L3 medial branch with motor stimulation of .5v on the right. The patient tolerated the procedure well without signs or symptoms of complications prior to transfer to the recovery area continued monitoring without incident. The patient was then transferred to the recovery area where they were observed for an appropriate period of time after the injection. The patient was then transferred to the recovery area where they were observed for an appropriate period of time after the injection. The patient reported a VAS score of 8 prior to the procedure and a post- procedure VAS of 0. POST OP INSTRUCTIONS The patient was provided a Pain Log to continue to record the patient's response to the target-specific procedure prior to the patient's follow-up visit with the referring physician. Additionally, specific post-injection care instructions and a contact number to our office were provided if concerns arise regarding possible complications associated with the procedure are suspected.
== END 2022-06-01 09:21 | disposition home or self-care (01) ==
LOC: RAD 07:02
PROVIDERS: Family Provider Ophthalmology; PCP Family Medicine; Referring Provider Physical Medicine & Rehabilitation; Visit Provider Physical Medicine & Rehabilitation
DX: M47.816 Spondylosis without myelopathy or radiculopathy, lumbar region (principal); M47.817 Spondylosis without myelopathy or radiculopathy, lumbosacral region; Z20.822 Contact with and (suspected) exposure to COVID-19
CPT/HCPCS: 64635; 64636; 87635; 99152; J2250

== ENCOUNTER → 2022-07-16 13:56 | Outpatient (CLI) | payer MEDICARE, OTHER, SELFPAY | PROVIDERS: Family Provider Ophthalmology; PCP Family Medicine; Referring Provider Nurse Practitioner Family; Visit Provider Nurse Practitioner Family | DX: Z78.0 Asymptomatic menopausal state (principal); Z13.820 Encounter for screening for osteoporosis; M85.852 Other specified disorders of bone density and structure, left thigh; Z79.890 Hormone replacement therapy | CPT/HCPCS: 77080 ==

== ENCOUNTER → 2022-09-25 13:54 | Outpatient (CLI) | payer MEDICARE, OTHER, SELFPAY ==
--- NOTE | 2022-09-25 13:55 | DI.MRI.S_ITS ---
PROCEDURE: MR HIP LT WO CON INDICATIONS: left hip pain s/p fall TECHNIQUE: Noncontrast coronal T1 spin echo and STIR through the bony pelvis. Coronal and axial T2 fast spin echo with fat saturation, sagittal T1 spin echo, and oblique axial T2 fast spin echo with fat saturation through the hip. COMPARISON: None. FINDINGS: Image quality: Degraded by motion Bones: Pelvic ring: No displaced fracture. There are degenerative changes of the pubic symphysis. Femoral head and neck: No fracture. No osteonecrosis. Ligamentum teres: Intact. Lumbar spine and sacrum: Partially seen, with lumbar vertebral body height loss and T2 signal. Tendons: Abductors: Moderate tendinopathy. There is surrounding fluid in the trochanteric bursa. Mild degree is also seen on the right. Adductors and rectus abdominis: Intact. No pubic symphyseal edema. IT band: Intact. Iliopsoas: Intact. No bursitis. Hamstrings: Intact. Rectus femoris: Intact. Joint: Joint space: No significant effusion. Labrum: Not well evaluated, circumferentially attenuated. Cartilage: No subchondral edema or significant geode formation. There is moderate joint space narrowing and thinning. Soft tissues: Quadratus femoris: No edema or atrophy. Piriformis: Symmetric. Intrapelvic structures: Partially visualized prominent endometrium. Intrapelvic structures are not well evaluated on this nondedicated study. IMPRESSION: Moderate femoral acetabular degenerative changes. No acute fracture or pelvic ring disruption identified. Moderate abductor tendinopathy, with trochanteric bursitis. This is also seen in the partially visualized right side, but is more severe on the left side. Partially visualized age-indeterminate height loss and T2 signal in the partially visualized lower lumbar spine, consider dedicated L-spine imaging for further evaluation if there are corresponding symptoms. Partially visualized prominence of the uterine endometrium, this could be further evaluated ultrasound, particularly if there is any history of postmenopausal bleeding. Intrapelvic structures are not well evaluated on this study. Overall motion degraded MRI. Dictated by: Jose Ramon M.D. on 09/27/2022 at 8:45 Approved by: Jose Ramon M.D. on 09/27/2022 at 8:51
== END ==
PROVIDERS: Family Provider Ophthalmology; PCP Family Medicine; Referring Provider Physical Medicine & Rehabilitation; Visit Provider Physical Medicine & Rehabilitation
DX: M70.62 Trochanteric bursitis, left hip (principal); M25.552 Pain in left hip
CPT/HCPCS: 73721

== ENCOUNTER → 2022-11-24 12:17 | Outpatient (CLI) | payer MEDICARE, OTHER, SELFPAY ==
--- NOTE | 2022-11-24 | DI.US.S_ITS ---
PROCEDURE: US PELVIC COMPLETE INDICATIONS: THICKENED ENDOMETRIUM TECHNIQUE: Real-time scanning was performed of the pelvic organs, with image documentation. Additional endovaginal scanning was necessary due to incomplete visualization of the adnexal and endometrial structures by transabdominal scanning. COMPARISON: [facility], MR, MR HIP LT WO CON, 09/25/2022, 14:15. [facility], CR, XR PELVIS WITH LATERAL HIP LEFT, 11/24/2022, 15:04. FINDINGS: Uterus: Uterus is anteverted and normal in size at 5.2 x 1.6 x 3.3 cm. The myometrium is homogeneous. The endometrium measures 4 mm combined thickness. Questionable trace fluid within the endometrial canal. Of note, transvaginal evaluation was not performed. Cervix is not well evaluated. Ovaries: Ovaries are not visualized, which is expected based on patient's age and postmenopausal status. Other: No pathologic free abdominal or pelvic fluid. IMPRESSION: 1. Endometrial appears to be normal in thickness on transabdominal images, measuring up to 4 mm in maximum thickness. Possible trace nonspecific endometrial free fluid. 2. Ovaries are not visualized. We strive to produce accurate, complete, and clear reports of imaging services. To assist us in improving patient care, this report was composed using standard report templates and voice recognition software. Therefore, it may contain abnormal punctuation, insertions and/or omissions. Occasional wrong-word or sound-alike substitutions may occur. Though we review the report and make efforts to correct it, we do recommend that the report be read carefully in proper context to recognize any text inaccuracies. Approved by: Andrew Romero M.D. on 11/24/2022 at 21:04
--- NOTE | 2022-11-24 | DI.MRI.S_ITS ---
PROCEDURE: MR LUMBAR SPINE WO CON INDICATIONS: Lumbago with sciatica TECHNIQUE: Noncontrast sagittal T1 spin echo and T2 fast echo, sagittal STIR, and T2 fast spin echo through the lumbar spine. In cases with scoliosis, additional coronal T2 fast spin echo may be performed. COMPARISON: [facility], MR, MR LUMBAR SPINE WO CON, 11/24/2021, 9:12. FINDINGS: Image quality: Excellent. Alignment and Curvature: Unchanged moderate dextro curvature centered at L2-L3. Leftward listhesis of L1 on L2 measuring 8 mm. Trace retrolisthesis of T12 on L1, of L1 on L2, and of L2 on L3. Trace anterolisthesis of L4 on L5. Bone Marrow: Marrow is of normal overall signal. No acute vertebral body compression fractures. Spinal Cord: Conus medullaris terminates at the L1 level. Visualized cord demonstrates normal signal and size. Paraspinous Soft Tissues: No paravertebral masses. T12-L1: Posterior disc plus osteophyte. Mild facet hypertrophy. No canal stenosis or foraminal stenosis. L1-L2: No significant change. Bilateral facet hypertrophy, left greater than right. Retrolisthesis of L1 on L2. No significant central canal stenosis. Left facet hypertrophy results in left lateral recess stenosis. There is moderate right foraminal narrowing. There is moderate to severe left foraminal narrowing with a degree of left foraminal L1 nerve root impingement. L2-L3: No significant change. Posterior disc post osteophyte. Bilateral facet hypertrophy, left greater than right. No significant central canal stenosis. Mild right foraminal narrowing. Moderate to severe left foraminal narrowing with a degree of left foraminal L2 nerve root impingement. L3-L4: Posterior disc plus osteophyte. Bilateral facet hypertrophy. Mild central canal stenosis. [id number] right foraminal narrowing. Moderate to severe left foraminal narrowing. There is a degree of left foraminal L3 nerve root impingement. L4-L5: No significant change. Posterior disc bulge. Prominent bilateral facet hypertrophy, right greater than left. There is moderate central canal stenosis. There is severe bilateral lateral recess stenosis. There is severe right foraminal narrowing and moderate to severe left foraminal narrowing. There is a degree of bilateral foraminal L4 nerve root impingement. L5-S1: Prominent right facet hypertrophy. Mild left facet hypertrophy. No canal stenosis. Severe right foraminal narrowing with right foraminal L5 nerve root impingement. Mild to moderate left foraminal narrowing. IMPRESSION: 1. 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 2. Extensive multilevel facet arthropathy. 3. There is mild central canal stenosis at L3-L4 and moderate central canal stenosis at L4-L5. There is also severe bilateral lateral recess stenosis at L4-L5. 4. Significant multilevel foraminal narrowing as described above. This includes moderate to severe left foraminal narrowing at L1-L2, moderate to severe left foraminal narrowing at L2-L3, moderate to severe left foraminal narrowing at L3-L4, severe right foraminal narrowing and moderate to severe left foraminal narrowing at L4-L5, and severe right foraminal narrowing at L5-S1. Dictated by: Edouard Garcia M.D. on 11/24/2022 at 15:16 Approved by: Edouard Garcia M.D. on 11/24/2022 at 15:37
== END ==
PROVIDERS: Family Provider Ophthalmology; PCP Family Medicine; Referring Provider Family Medicine; Visit Provider Family Medicine
DX: M51.16 Intervertebral disc disorders with radiculopathy, lumbar region (principal); M47.26 Other spondylosis with radiculopathy, lumbar region; M47.27 Other spondylosis with radiculopathy, lumbosacral region; M48.061 Spinal stenosis, lumbar region without neurogenic claudication; M48.07 Spinal stenosis, lumbosacral region; R93.89 Abnormal findings on diagnostic imaging of other specified body structures; G89.29 Other chronic pain
CPT/HCPCS: 72148; 76856